=== PATIENT | male | born 1975 | race Caucasian/White ===

== ENCOUNTER 2020-03-20 10:17 | Day surgery (SDC) | payer BC ==
[2020-03-13 13:17] LABS: BASOPHILS # (AUTO) 0.1 X10'3 (0-0.2); BASOPHILS % (AUTO) 1.2 % (0-1); EOSINOPHILS # (AUTO) 0.4 X10'3 (0-0.9); EOSINOPHILS % (AUTO) 3.6 % (0-6); LYMPHOCYTES # (AUTO) 2.8 X10'3 (1.1-4.8); LYMPHOCYTES % (AUTO) 27.5 % (21-51); MEAN CORPUSCULAR HEMOGLOBIN 29.3 PG (27.0-31.0); MEAN CORPUSCULAR HGB CONC 33.3 g/dL (33.0-36.5); MEAN CORPUSCULAR VOLUME 87.7 FL (78-98); MEAN PLATELET VOLUME 8.1 FL (7.4-10.4); MONOCYTES # (AUTO) 1.2 X10'3 (0-0.9); MONOCYTES % (AUTO) 12.2 % (2-12); NEUTROPHILS # (AUTO) 5.6 X10'3 (1.8-7.7); NEUTROPHILS % (AUTO) 55.5 % (42-75); PRE OP HEMATOCRIT 41.5 % (42.0-52.0); PRE OP HEMOGLOBIN 13.8 g/dL (14.0-17.9); PRE OP PLATELET COUNT 318 X10'3 (140-440); RED BLOOD COUNT 4.73 X10'6 (4.70-6.10); RED CELL DISTRIBUTION WIDTH 13.4 % (11.5-14.5)
[2020-03-13 13:32] LABS: ALBUMIN 3.8 G/DL (3.4-5.0); ALBUMIN/GLOBULIN RATIO 1.1 (1.1-1.5); ALKALINE PHOSPHATASE 79 IU/L (46-116); BLOOD UREA NITROGEN 15 MG/DL (7-18); BUN/CREATININE RATIO 16.1 (5.4-32.0); CALCIUM 8.6 MG/DL (8.5-10.1); CHLORIDE 106 MMOL/L (99-107); CREATININE 0.93 MG/DL (0.60-1.10); PRE OP ALT 23 U/L (30-65); PRE OP ANION GAP 5 (8-16); PRE OP AST 15 U/L (10-37); PRE OP BILIRUB, TOTAL 0.2 MG/DL (0.0-1.0); PRE OP GLUCOSE 81 MG/DL (70-104); PRE OP POTASSIUM 3.5 MMOL/L (3.4-5.1); PRE OP SODIUM 140 MMOL/L (135-145); TOTAL CARBON DIOXIDE 29.1 MMOL/L (24-32); TOTAL PROTEIN 7.3 G/DL (6.4-8.2); eGFR 87 ML/MIN
[~2020-03-20] VITALS: Ht 185.4 cm; Wt 91.4 kg
[2020-03-20] VITALS (12 sets, daily range): BP systolic 111–146; BP diastolic 65–91
[~2020-03-20 10:17] MED LIST: BUPIVAcaine/PF 2.5 mg/ml (0.25%) 30ml vial ONE; LIDOcaine 1% 30ml preserv. free vial ONE; NO HOME MEDS; ceFAZolin 2gm in dextrose, iso 50 ML IV ONE; famotidine 10mg tablet PO ONE; ringers solution, lacted 1,000 ML IV SCH
[2020-03-20] MEDS ORDERED: glycopyrrolate 0.2mg/ml inj ONE (12:31)
[2020-03-20] MEDS ORDERED: sevoflurane 250ml liquid IH ONE (12:31)
[2020-03-20] MEDS ORDERED: dexamethasone sod phosphate 10mg/ml inj ONE (12:31)
[2020-03-20] MEDS ORDERED: fentaNYL/PF 50MCG/1 ML 2ML syringe ONE (12:42)
[2020-03-20] MEDS ORDERED: MIDAZolam 5mg/5ml vial ONE (12:43)
[2020-03-20] MEDS ORDERED: BUPIVACAINE liposomal/PF 13.3 MG/ML vial IM ONE (12:43)
[2020-03-20] MEDS ORDERED: BUPIVAcaine/PF 2.5mg/ml (0.25%) 10ml vial ONE (12:43)
[2020-03-20] MEDS ORDERED: LIDOcaine 2% (20mg/ml) 5ml vial ONE (12:48)
[2020-03-20] MEDS ORDERED: propofol inj 20 ML IV ONE (12:48)
[2020-03-20] MEDS ORDERED: rocuronium 10mg/ml inj IV ONE (12:49)
[2020-03-20] MEDS ORDERED: ondansetron/PF 4mg/2ml inj ONE (12:49)
[2020-03-20] MEDS ORDERED: hydrALAZINE 20mg/ml inj. IV PRN (13:15)
[2020-03-20] MEDS ORDERED: fentaNYL/PF 50MCG/1 ML 2ML syringe IV PRN ×2 (13:15)
[2020-03-20] MEDS ORDERED: ringers solution, lacted 1,000 ML IV SCH (13:15)
[2020-03-20] MEDS ORDERED: morphine 2 MG/ML inj. syringe IV PRN (13:15)
[2020-03-20] MEDS ORDERED: morphine 4 MG/ML inj SYRINge IV PRN (13:15)
[2020-03-20] MEDS ORDERED: labetalol 20mg/4ml (5mg/ml) syringe IV PRN (13:15)
[2020-03-20] MEDS ORDERED: ondansetron/PF 4mg/2ml inj IV PRN (13:15)
[2020-03-20] MEDS ORDERED: neostigmine methylsulfate 1 MG/ML 10ml vial ONE (13:53)
--- NOTE | 2020-03-20 14:12 | NUR ---
PATIENT REPORT RECEIVED FROM DR. SPARKS. PATIENT IN RECOVERY ASLEEP POST SURGERY. 10 LPM OXYGEN VIA FACE MASK O2 SATURATIONS 99%. 20 GAUGE IV IN LEFT UPPER EXTREMITY RUNNING LR AT 100 ML/HR. SINUS RHYTHM AT 67 BEATS PER MINUTE AND BLOOD PRESSURE OF 130/90. Received from OR [facility]. 3 ABDOMINAL DRESSING BAND AIDS ALL CLEAN, DRY AND INTACT. Addendum: 03/20/20 at 1432 by Bin Madsen RN, RN Amended: Links added.
[2020-03-20] MEDS ORDERED: oxyCODONE/APAP 5-325mg tablet PO PRN ×2 (14:25)
--- NOTE | 2020-03-20 16:43 | NUR ---
D/C FROM PACU PATIENT AND FAMILY AND THEY HAVE VERBALIZED UNDERSTANDING, OPPORTUNITY TO ASK QUESTIONS GIVEN AND PATIENT COMFORTABLE WITH DC. IV TAKEN OUT WITHOUT COMPLICATION. PATIENT HAS MET ALL DC CRITERIA FOR DC HOME. I HAVE REVIEWED D/C INSTRUCTIONS WITH OUT VIA WHEELCHAIR WHERE PATIENT WAS TAKEN HOME WITH ALL BELONGINGS. FAMILY GAVE PATIENT TRANSPORT HOME. SCRIPT FOR PAIN MEDS WITH PATIENT AND ZOFRAN CALLED INTO PHARMACY. Addendum: 03/20/20 at 1644 by Bin Madsen RN, RN Amended: Links added.
== END 2020-03-20 16:42 | disposition home or self-care (01) ==
LOC: PAS 10:17
PROVIDERS: ATTEND Surgery
DX: K42.0 Umbilical hernia with obstruction, without gangrene (principal); F41.9 Anxiety disorder, unspecified; Z79.899 Other long term (current) drug therapy; Z20.828 Contact with and (suspected) exposure to other viral communicable diseases
CPT/HCPCS: 36415; 49653; 64488; 80053; 82948; 85025; 87635; 93005; C1781; C9290; J2001; J2250; J2405; J2704; J2710; J3010; J3490; J7120; S2900; A4215; A4618; J1100